=== PATIENT | male | born 1935 | race Caucasian/White ===

== ENCOUNTER → 2019-01-28 | Emergency (ER) | payer MEDICARE, BC ==
[2019-01-28 07:10] VITALS: BP 131/92
--- NOTE | 2019-01-28 07:36 | EDM.PDOC ---
ED HPI GENERAL MEDICAL PROBLEM - General Chief Complaint: Genitourinary Problem Stated Complaint: Catheter ISSUES Time Seen by Provider: 01/28/19 07:32 Source of Information: Reports: Patient, RN Notes Reviewed History Limitations: Reports: No Limitations - History of Present Illness INITIAL COMMENTS - FREE TEXT/NARRATIVE: 83-year-old gentleman presents emergency department today with complaint of problems with his urinary catheter. He recently had a catheter placed secondary to bladder cancer status post resection he states he has had minimal output from his urinary catheter and has had leaking around the catheter at the penis is woke up with a few times at night. He would like to have his INR checked as well. Does complaining of some burning at the tip of his penis Treatments FIELD INVESTIGATOR: Reports: Other (see below) Other Treatments FIELD INVESTIGATOR: none - Related Data Allergies Allergy/AdvReac Type Severity Reaction Status Date / Time antibiotic Allergy Swelling Uncoded 02/01/15 08:19 Home Meds: Home Meds Lisinopril 2.5 mg PO DAILY 02/01/15 [History] Metoprolol Tartrate 25 mg PO DAILY 02/01/15 [History] Warfarin [Coumadin] 6 mg PO DAILY 02/01/15 [History] Warfarin [Coumadin] 8 mg PO [id number] 02/01/15 [History] Aspirin 81 mg PO DAILY 01/28/19 [History] Clopidogrel [Plavix] 75 mg PO DAILY 01/28/19 [History] Furosemide [Lasix] 40 mg PO DAILY 01/28/19 [History] Pantoprazole Sodium [Protonix] 40 mg PO DAILY 01/28/19 [History] atorvaSTATin [Lipitor] 40 mg PO BEDTIME 01/28/19 [History] Past Medical History HEENT History: Reports: Impaired Vision Cardiovascular History: Reports: Other (See Below) Other Cardiovascular History: "bad valve" Oncologic (Cancer) History: Reports: Bladder - Infectious Disease History Infectious Disease History: Reports: Chicken Pox, Measles, Mumps - Past Surgical History GI Surgical History: Reports: Appendectomy, Hernia Repair/Other Male Surgical History: Reports: Other (See Below) Other Male Surgeries/Procedures: bladder tumor removed Social & Family History - Tobacco Use Smoking Status *Q: Never Smoker - Caffeine Use Caffeine Use: Reports: Soda - Alcohol Use Days Per Week of Alcohol Use: 5 Number of Drinks Per Day: 1 Total Drinks Per Week: 5 - Recreational Drug Use Recreational Drug Use: No ED ROS GENERAL - Review of Systems Review Of Systems: See Below Constitutional: Reports: No Symptoms GI/Abdominal: Reports: No Symptoms : Reports: Dysuria, Other (Catheter dysfunction) ED EXAM, RENAL/ - Physical Exam Exam: See Below Exam Limited By: No Limitations General Appearance: Alert, WD/WN, No Apparent Distress Respiratory/Chest: No Respiratory Distress GI/Abdominal: Soft, Non-Tender Course - Vital Signs Last Recorded V/S: Last Vital Signs Temp 96.0 F 01/28/19 07:12 Pulse 63 01/28/19 07:12 Resp 18 01/28/19 07:12 BP 131/92 H 01/28/19 07:12 Pulse Ox 96 01/28/19 07:12 - Orders/Labs/Meds Orders: Active Orders 24 hr Category Date Time Status Bladder Scan [RC] ASDIRECTED Care 01/28/19 07:29 Active [place] Catheter Insertion [Insert Urinary Catheter] [OM. Care 01/28/19 07:45 Ordered PC] Q24H Urinary Catheter Assessment [RC] ASDIRECTED Care 01/28/19 07:33 Active Labs: Laboratory Tests 01/28/19 01/28/19 Range/Units 07:40 08:16 PT 12.7 H (9.5-12.0) sec INR 1.16 D (0.80-1.20) Urine Color Other Urine Appearance Cloudy Urine pH 6.0 (4.5-8.0) Ur Specific [place] 1.015 (1.008-1.030) Urine Protein 100 H (NEGATIVE) mg/dL Urine Glucose (UA) Normal (NEGATIVE) mg/dL Urine Ketones Negative (NEGATIVE) mg/dL Urine Occult Blood Large (NEGATIVE) Urine Nitrite Negative (NEGAITVE) Urine Bilirubin Negative (NEGATIVE) Urine Urobilinogen Normal (NORMAL) mg/dL Ur Leukocyte Esterase Small (NEGATIVE) Urine RBC Packed H (0-5) Urine WBC 5-10 H (0-5) Ur Epithelial Cells Not seen Amorphous Sediment Many Urine Bacteria Not seen Urine Mucus Not seen Departure - Departure Time of Disposition: 09:03 Disposition: Home, Self-Care 01 Condition: Fair Clinical Impression: Urinary catheter dysfunction Qualifiers: Encounter type: initial encounter Qualified Code(s): T83.018A - Breakdown ( mechanical) of other urinary catheter, initial encounter - Discharge Information Referrals: Brissa Vega MD [Primary Care Provider] - Forms: ED Department Discharge Additional Instructions: Please follow-up with your urologist tomorrow, call or return to the emergency department worsening of symptoms - My Orders Last 24 Hours: My Active Orders 01/28/19 07:29 Bladder Scan [RC] ASDIRECTED 01/28/19 07:33 Urinary Catheter Assessment [RC] ASDIRECTED 01/28/19 07:45 [place] Catheter Insertion [Insert Urinary Catheter] [OM.PC] Q24H - Assessment/Plan Last 24 Hours: My Active Orders 01/28/19 07:29 Bladder Scan [RC] ASDIRECTED 01/28/19 07:33 Urinary Catheter Assessment [RC] ASDIRECTED 01/28/19 07:45 [place] Catheter Insertion [Insert Urinary Catheter] [OM.PC] Q24H Plan: Assessment Acuity = acute Site and laterality = [place] catheter dysfunction Etiology = unknown etiology Location of injury = Home Lab values = UA shows packed RBCs with wbc's 5-10 consistent hematuria prior respectively no bacteria, INR is normal at 1.16 Plan new catheter was placed appears to be functioning normally plan is discharge home he will follow up with urology tomorrow This note was dictated using [email or web address] voice recognition software please call with any questions on syntax or grammar.
== END | disposition home or self-care (01) ==
LOC: JP.ED 06:38
DX: T83.018A Breakdown (mechanical) of other urinary catheter, initial encounter (principal); Z79.01 Long term (current) use of anticoagulants; Z79.899 Other long term (current) drug therapy; Z88.1 Allergy status to other antibiotic agents; Z79.82 Long term (current) use of aspirin
CPT/HCPCS: 36415; 51702; 51798; 81001; 85610; 99283

== ENCOUNTER 2022-02-03 12:06 | Emergency (ER) | payer MEDICARE, BC ==
[2022-02-03 12:45] VITALS: PULSE 114
[2022-02-03] MEDS ORDERED: Ondansetron 4 MG/2 ML SDV IVPUSH ONE (13:41)
[2022-02-03] MEDS ORDERED: fentaNYL 50 MCG/ML SDV IVPUSH ONE (13:41)
[2022-02-03] MEDS ORDERED: Sodium Chloride 0.9% 1,000 ML IV SCH (13:45)
[2022-02-03 14:09] VITALS: BP 120/92
[2022-02-03 14:13] LABS: ESTIMATED GFR > 60 (>60)
[2022-02-03] MEDS ORDERED: methylPREDNISolone Sodium Succinate 125 MG/2 ML SDV IVPUSH ONE (15:30)
== END 2022-02-03 15:59 | disposition home or self-care (01) ==
LOC: JP.ED 12:06
DX: G89.29 Other chronic pain (principal); M54.50 Low back pain, unspecified; Z79.01 Long term (current) use of anticoagulants; Z79.899 Other long term (current) drug therapy; Z87.891 Personal history of nicotine dependence
CPT/HCPCS: 36415; 74176; 80053; 83605; 85025; 96374; 96375; 99283; 99284; J2405; J2930; J3010; J7030

== ENCOUNTER 2022-02-19 23:35 | Emergency (ER) | payer MEDICARE, BC ==
[2022-02-20 00:08] VITALS: BP 116/75
[2022-02-20 00:16] LABS: ESTIMATED GFR 45 mL/min (>60)
[2022-02-20 00:22] LABS: TROPONIN I HIGH SENSITIVITY 319.8 pg/mL (<=60.3)
[2022-02-20 03:11] VITALS: PULSE 83
[2022-02-20] MEDS ORDERED: Acetaminophen 325 MG Tab PO ONE (05:43)
== END 2022-02-20 06:48 | disposition home or self-care (01) ==
LOC: JP.ED 23:35
DX: S29.011A Strain of muscle and tendon of front wall of thorax, initial encounter (principal); N17.9 Acute kidney failure, unspecified; W22.8XXA Striking against or struck by other objects, initial encounter
CPT/HCPCS: 36415; 80053; 81001; 84484; 85025; 85610; 85730; 93005; 93010; 99283; 99285-25; A9270-GY